=== PATIENT | female | born 1980 | race Caucasian/White ===

== ENCOUNTER 2019-06-30 12:48 | Emergency (ER) | payer OTHER ==
[2019-06-30 12:52] VITALS: BMI 30.7
--- NOTE | 2019-06-30 13:18 | PDOC ---
History of Present Illness - History of Present Illness Initial Comments: 06/30/19 13:16 39 yo F PMH (all C-sections, first was due to "baby being too large"), recent gastric slip 5 months ago in [place], [place], presenting with vaginal bleeding. Amharic speaking only. Patient notes that the bleeding has been happening on and off for the past month. She reports calling to get an appointment with a ore bridge operator at [address], but was apparently told that she should go to the ER to ensure that nothing acute was happening before making the appointment. She developed suprapubic abdominal pain and low back pain today, consistent with her long-time symptoms around her period, which along with the bleeding prompted her to come into the ER. Patient reports taking Nti-At-Jghvuk (norgestimate and ethinyl estradiol) as anti-contraceptive for the past two years, which had previously helped her with her period. However, this has not been helpful for the past month. Denies CP, SOB, lightheadedness, palpitations, dizziness, DOVE, N/V, urinary symptoms. Endorses vaginal bleeding, suprapubic abdominal pain, and low back pain. <Remington Merchant - Last Filed: 06/30/19 15:11> <Andreas Cruz - Last Filed: 06/30/19 15:23> - General Chief Complaint: Vaginal Bleeding Stated Complaint: VAGINAL BLEEDING (1 MNTH) Time Seen by Provider: 06/30/19 13:07 Past History - Past Medical History COPD: No GI Disorders: Yes - Psycho Social/Smoking Cessation Hx Smoking History: Never smoked <Remington Merchant - Last Filed: 06/30/19 15:11> <Andreas Cruz - Last Filed: 06/30/19 15:23> - Past Medical History Allergies/Adverse Reactions: Allergies Allergy/AdvReac Type Severity Reaction Status Date / Time No Known Allergies Allergy Verified 06/30/19 12:52 Review of Systems - Review of Systems Comments:: 06/30/19 13:28 GENERAL/CONSTITUTIONAL: No fever or chills. No weakness. HEAD, EYES, EARS, NOSE AND THROAT: No change in vision. No ear pain or discharge. No sore throat. CARDIOVASCULAR: No chest pain or shortness of breath. RESPIRATORY: No cough, wheezing, or hemoptysis. GASTROINTESTINAL: No nausea, vomiting, diarrhea or constipation. GENITOURINARY: No dysuria, frequency, or change in urination. Vaginal bleeding, suprapubic abdominal pain. MUSCULOSKELETAL: No joint or muscle swelling or pain. No neck or back pain. SKIN: No rash NEUROLOGIC: No headache, vertigo, loss of consciousness, or change in strength/ sensation. ENDOCRINE: No increased thirst. No abnormal weight change. HEMATOLOGIC/LYMPHATIC: No anemia, easy bleeding, or history of blood clots. ALLERGIC/IMMUNOLOGIC: No hives or skin allergy <Remington Merchant - Last Filed: 06/30/19 15:11> *Physical Exam - Vital Signs Last Vital Signs Temp Pulse Resp BP Pulse Ox 98 F 67 18 131/61 100 06/30/19 12:49 06/30/19 12:49 06/30/19 12:49 06/30/19 12:49 06/30/19 12:49 - Physical Exam 06/30/19 14:12 Gen: well-developed, well-nourished, NAD Neuro: AAOX4, CN II-XII intact, FTN intact, EOMI, PERRLA, 5/5 strength, SILT HEENT: atraumatic, normocephalic, dry mucous membranes Neck: trachea midline, supple CV: regular rate, regular rhythm, no murmurs, rubs, or gallops Pulm: CTA b/l, no wheezing Abd: soft, non-distended, non-tender : closed os, pooled blood in the vault, no CMT or adnexal tenderness, no discharge MSK: full ROM, intact pulses Extr: no edema, no deformities Skin: warm, dry <Remington Merchant - Last Filed: 06/30/19 15:11> - Vital Signs Last Vital Signs Temp Pulse Resp BP Pulse Ox 98 F 67 18 131/61 100 06/30/19 12:49 06/30/19 12:49 06/30/19 12:49 06/30/19 12:49 06/30/19 12:49 <Andreas Cruz - Last Filed: 06/30/19 15:23> ED Treatment Course - LABORATORY CBC & Chemistry Diagram: 06/30/19 13:45 06/30/19 13:45 <Remington Merchant - Last Filed: 06/30/19 15:11> - LABORATORY CBC & Chemistry Diagram: 06/30/19 13:45 06/30/19 13:45 - ADDITIONAL ORDERS Additional order review: Laboratory Results 06/30/19 06/30/19 06/30/19 14:10 14:10 13:45 PT with INR 11.70 INR 0.99 PTT (Actin FS) 32.0 Sodium Potassium Chloride Carbon Dioxide Anion Gap BUN Creatinine Est GFR (CKD-EPI)AfAm Est GFR (CKD-EPI)NonAf Random Glucose Calcium Total Bilirubin AST ALT Alkaline Phosphatase Total Protein Albumin Urine Color Yellow Urine Appearance Cloudy Urine pH >= 9.0 H D Ur Specific [place] 1.018 Urine Protein Negative Urine Glucose (UA) Negative Urine Ketones Negative Urine Blood 2+ H Urine Nitrite Negative Urine Bilirubin Negative Urine Urobilinogen 0.2 Ur Leukocyte Esterase Negative Urine WBC (Auto) 0 Urine RBC (Auto) 237 Urine Casts (Auto) 0 U Epithel Cells (Auto) 0.8 Urine Bacteria (Auto) 0.8 Urine HCG, Qual Negative 06/30/19 13:45 PT with INR INR PTT (Actin FS) Sodium 138 Potassium 4.1 Chloride 105 Carbon Dioxide 27 Anion Gap 6 L BUN 10.4 Creatinine 0.7 Est GFR (CKD-EPI)AfAm 125.61 Est GFR (CKD-EPI)NonAf 108.38 Random Glucose 83 Calcium 8.7 Total Bilirubin 0.2 AST 11 L ALT 17 Alkaline Phosphatase 71 Total Protein 7.3 Albumin 3.3 L Urine Color Urine Appearance Urine pH Ur Specific [place] Urine Protein Urine Glucose (UA) Urine Ketones Urine Blood Urine Nitrite Urine Bilirubin Urine Urobilinogen Ur Leukocyte Esterase Urine WBC (Auto) Urine RBC (Auto) Urine Casts (Auto) U Epithel Cells (Auto) Urine Bacteria (Auto) Urine HCG, Qual 06/30/19 13:45 RBC 3.65 MCV 83.8 MCHC 33.0 RDW 16.8 H MPV 10.8 Neutrophils % 54.2 D Lymphocytes % 31.6 Monocytes % 6.9 Eosinophils % 6.4 H Basophils % 0.9 <Andreas Cruz - Last Filed: 06/30/19 15:23> Medical Decision Making - Medical Decision Making 06/30/19 14:15 Concern for potential v fibroids. - CBC, CMP - PT&PTT - UA/UC - u preg - reassess 06/30/19 14:37 Hgb 10.1, unchanged from prior. 06/30/19 15:11 UA without UTI. Will f/u CMP. <Remington Merchant - Last Filed: 06/30/19 15:11> Discharge - Discharge Information Problems reviewed: Yes <Remington Merchant - Last Filed: 06/30/19 15:11> <Andreas Cruz - Last Filed: 06/30/19 15:23> - Discharge Information Clinical Impression/Diagnosis: Vaginal bleeding - Follow up/Referral Referrals: Feliciano Perry MD [Staff Physician] - - Patient Discharge Instructions Patient Printed Discharge Instructions: DI for Vaginal Bleeding Additional Instructions: You were seen with vaginal bleeding. Your labs and physical exam did not show any concerning findings. However, it is important to follow up with a ore bridge operator as soon as possible. Bleeding can be a sign of uterine fibroids or in some cases cancer. We have referred you to one in your paperwork. Follow up with your primary care doctor within one week. Return to the ED if you develop worsening symptoms.
--- NOTE | 2019-06-30 13:36 | PDOC ---
Attending Attestation - Resident Resident Name: Remington Merchant - ED Attending Attestation I have performed the following: I have examined & evaluated the patient, The case was reviewed & discussed with the resident, I agree w/resident's findings & plan, Exceptions are as noted - HPI HPI: 06/30/19 13:31 39 F with h/o bariatric surgery presenting to ED with vaginal bleeding. Pt states intermittent spotting x 1 month. Denies any abdominal pain but endorses occasional suprapubic cramping that feels like her menstrual period. Pt denies any F/C. Denies vaginal discharge. Denies dysuria. Denies flank pain. Pt states that her manager basketball instructed her to come to the ER for evaluation. - Physicial Exam PE: 06/30/19 13:36 "GENERAL: Awake, alert, and fully oriented, in no acute distress. HEAD: No signs of trauma EYES: PERRLA, EOMI, sclera anicteric, conjunctiva clear ENT: Auricles normal inspection, hearing grossly normal, nares patent, oropharynx clear without exudates. Moist mucosa NECK: Nontender, no stepoffs, Normal ROM, supple, no lymphadenopathy, JVD, or masses LUNGS: Breath sounds equal, clear to auscultation bilaterally. No wheezes, and no crackles HEART: Regular rate and rhythm, normal S1 and S2, no murmurs, rubs or gallops ABDOMEN: + suprapubic TTP, normoactive bowel sounds. No guarding, no rebound. No masses EXTREMITIES: Normal range of motion, no edema. No clubbing or cyanosis. No cords, erythema, or tenderness NEUROLOGICAL: Cranial nerves II through XII intact. 5/5 strength and sensation in all extremities, Normal speech, normal gait, normal cerebellar function SKIN: Warm, Dry, normal turgor, no rashes or lesions noted. - Medical Decision Making 06/30/19 13:36 39 F with vaginal bleeding and suprapubic pain. - Labs - Pelvic exam 06/30/19 14:22 Pelvic exam with blood in vault, otherwise unremarkable, no CMT or evidence of ovarian pathology 06/30/19 15:22 Labs wnl, UPT negative Will refer to outpt OB for further evaluation of bleeding Pt is well appearing, with normal vitals. Clinically stable for DC at this time. I discussed the physical exam findings, ancillary test results and final diagnoses with the patient. I answered all of the patient's questions. The patient was satisfied with the care received and felt comfortable with the discharge plan and treatment plan. The patient agrees to follow up with the primary care physician within 24-72 hours.
[2019-06-30 14:27] LABS: BASO % 0.9 % (0-2.0); EOS % 6.4 % (0-4.5); HEMATOCRIT 30.6 % (32.4-45.2); HEMOGLOBIN 10.1 GM/dL (10.7-15.3); LYMPH % 31.6 % (8-40); MCH 27.7 pg (25.7-33.7); MEAN CELL VOLUME 83.8 fl (80-96); MEAN PLT VOLUME 10.8 fl (7.5-11.1); MONO % 6.9 % (3.8-10.2); NEUT % 54.2 % (42.8-82.8); PLATELET COUNT 228 K/MM3 (134-434); RBC 3.65 M/mm3 (3.60-5.2); RDW 16.8 % (11.6-15.6); WHITE BLOOD COUNT 5.6 K/mm3 (4.0-10.0)
[2019-06-30 14:44] LABS: INR 0.99 (0.83-1.09); PROTHROMBIN TIME (PATIENT) 11.7 SEC (9.7-13.0)
[2019-06-30 14:52] LABS: EPI CELLS 0.8 /HPF (0-5/HPF); HYALINE CASTS 0 /lpf (0-8); PH,URINE >= 9.0 (5.0-8.0); URINE APPEARANCE CLOUDY; URINE BACTERIA 0.8 /hpf (NEGATIVE); URINE BILIRUBIN NEGATIVE (NEGATIVE); URINE COLOR YELLOW; URINE GLUCOSE (UA) NEGATIVE (NEGATIVE); URINE KETONE NEGATIVE (NEGATIVE); URINE LEUK ESTERASE NEGATIVE (NEGATIVE); URINE NITRITE NEGATIVE (NEGATIVE); URINE PROTEIN NEGATIVE (NEGATIVE); URINE RBC 237 /hpf (0-4); URINE UROBILINOGEN 0.2 mg/dL (0.2-1.0); URINE WBC 0 /hpf (0-5)
[2019-06-30 15:20] LABS: ALBUMIN 3.3 g/dl (3.4-5.0); BILIRUBIN,TOTAL 0.2 mg/dL (0.2-1); BLOOD UREA NITROGEN 10.4 mg/dL (7-18); CALCIUM 8.7 mg/dL (8.5-10.1); CREATININE 0.7 mg/dL (0.55-1.3); POTASSIUM 4.1 mmol/L (3.5-5.1); TOT PROT 7.3 g/dl (6.4-8.2)
[2019-06-30 15:32] VITALS: BP 120/57; PULSE 57; TEMP 98.1
== END 2019-06-30 15:32 | disposition home or self-care (01) ==
LOC: JER 12:48
DX: N93.8 Other specified abnormal uterine and vaginal bleeding (principal); R10.30 Lower abdominal pain, unspecified; Z98.84 Bariatric surgery status
CPT/HCPCS: 36415; 80053; 81003; 84703; 85025; 85610; 85730; 87086; 99283-25

== ENCOUNTER → 2021-03-10 | Day surgery (SDC) | payer OTHER ==
[2021-03-07 11:11] VITALS: BMI 29.1
[~2021-03-10] MED LIST: BUPIVACAINE HCL/PF 0.5% (5 MG/ML) 30 ML VIAL IJ ONE; BUPIVACAINE HCL/PF 0.5% (5MG/ML) 10 ML VIAL ONE; DEXAMETHASONE SOD PHOSPHATE 4 MG/1 ML VIAL ONE; KETOROLAC TROMETHAMINE 30 MG/1 ML VIAL ONE; LACTATED RINGERS SOLUTION 1,000 ML IV SCH; MIDAZOLAM HCL 2 MG/2 ML SINGLE DOSE VIAL ONE; ONDANSETRON 4 MG/2 ML VIAL IVPUSH PRN; PROPOFOL 20 ML ONE; ROCURONIUM BROMIDE 50 MG/5 ML SYRINGE ONE; SUCCINYLCHOLINE CHLORIDE 200 MG/10 ML SYRINGE ONE; oxyCODONE HCL 5 MG TABLET PO PRN
[2021-03-10 12:26] VITALS: BP 114/72; PULSE 69; TEMP 97.6
== END | disposition home or self-care (01) ==
LOC: JASU-SURG 04:46
PROVIDERS: ATTEND Obstetrics & Gynecology
PROC: 0UB14ZZ Excision of Left Ovary, Percutaneous Endoscopic Approach (ICD-10-PCS; 2021-03-10)
PROC: 0UT74ZZ Resection of Bilateral Fallopian Tubes, Percutaneous Endoscopic Approach (ICD-10-PCS; principal; 2021-03-10 08:00)
DX: Z30.2 Encounter for sterilization (principal); N83.202 Unspecified ovarian cyst, left side
CPT/HCPCS: 81025; 88302-TC; 88305-TC; 94760

== ENCOUNTER → 2021-05-07 | Day surgery (SDC) | payer OTHER | END | disposition home or self-care (01) | LOC: JRADUS-SUR 09:13 → JRAD 09:13 | PROVIDERS: ATTEND Obstetrics & Gynecology | PROC: BU08YZZ Plain Radiography of Uterus and Fallopian Tubes using Other Contrast (ICD-10-PCS; principal; 2021-05-07) | DX: N97.9 Female infertility, unspecified (principal) | CPT/HCPCS: 58340; 74740-TC-FY; 76000-TC-FY; 84703 ==

== ENCOUNTER 2021-06-26 19:20 | Emergency (ER) | payer OTHER ==
[2021-06-26 19:53] VITALS: BP 114/78; PULSE 78; TEMP 98.3; BMI 29.1
[2021-06-26] MEDS ORDERED: DIPHTH,PERTUSS(ACELL),TET 0.5 ML DISP.SYRIN IM ONE ×2 (20:30→20:44)
== END 2021-06-26 21:16 | disposition home or self-care (01) ==
LOC: JER 19:20
PROC: 0HQFXZZ Repair Right Hand Skin, External Approach (ICD-10-PCS; principal; 2021-06-26)
PROC: 3E0234Z Introduction of Serum, Toxoid and Vaccine into Muscle, Percutaneous Approach (ICD-10-PCS; 2021-06-26)
DX: S61.011A Laceration without foreign body of right thumb without damage to nail, initial encounter (principal); W26.0XXA Contact with knife, initial encounter
CPT/HCPCS: 90715; 99282-25